=== PATIENT | female | born 2000 | race Caucasian/White ===

== ENCOUNTER 2018-09-23 09:08 | Day surgery (SDC) | payer OTHER ==
[2018-09-09 11:29] VITALS: BMI 27.4
--- NOTE | 2018-09-17 14:50 | HP ---
Admitting History and Physical - Primary Care Physician PCP: Michelle Walter - Admission Chief Complaint: Left breast fibroadenoma History of Present Illness: 18 year old premenapausal nulliparous who presents with palpable left breast mass 05/2017 which an US 03/2018 showed increase in size 4.1x3.9x1.9cm from 3.9x3.6.1.9cm, located in 11:00 region left breast. 08/2018 left breast core biopsy showed fibroadenoma. History Source: Patient Limitations to Obtaining History: No Limitations - Past Medical History ...LMP: 08/21/18 - Past Surgical History Additional Past Surgical History: ACL repair and sinus surgery - Smoking History Smoking history: Never smoked Have you smoked in the past 12 months: No - Alcohol/Substance Use Hx Alcohol Use: No Home Medications - Allergies Allergies/Adverse Reactions: Allergies Allergy/AdvReac Type Severity Reaction Status Date / Time No Known Drug Allergies Allergy Verified 09/09/18 11:24 - Home Medications Home Medications: Ambulatory Orders NK [No Known Home Medication] 09/09/18 Family Disease History - Family Disease History Family Disease History: CA: Grandparent (breast ca 60's// mat GF prostate ca mutiple myeloma), Sister (cervical ca 33) Physical Examination Constitutional: Yes: No Distress Breast(s): Yes: Other (diffusely nodular left breast UIQ 3.0 cm rubery smooth mass//right breast negative) Problem List - Problems (1) Fibroadenoma of left breast Code(s): D24.2 - BENIGN NEOPLASM OF LEFT BREAST Assessment/Plan Left breast biopsy
[2018-09-23] MEDS ORDERED: ONDANSETRON 4 MG/2 ML VIAL IVPUSH PRN ×2 (10:30→11:43)
[2018-09-23] MEDS ORDERED: KETOROLAC TROMETHAMINE 30 MG/1 ML VIAL IVPUSH PRN (10:30)
[2018-09-23] MEDS ORDERED: DEXTROSE 5%-0.45% SALINE 1,000 ML IV SCH (10:30)
[2018-09-23] MEDS ORDERED: MIDAZOLAM HCL 2 MG/2 ML SINGLE DOSE VIAL ONE (10:31)
[2018-09-23] MEDS ORDERED: PROPOFOL 20 ML ONE ×2 (10:31→11:04)
[2018-09-23] MEDS ORDERED: LIDOCAINE HCL/PF 2% SDV 5ML VIAL ONE (10:32)
[2018-09-23] MEDS ORDERED: LIDOCAINE HCL 1% PRESERVATIVE FREE - 30ML VIAL ONE (10:42)
[2018-09-23] MEDS ORDERED: KETOROLAC TROMETHAMINE 30 MG/1 ML VIAL ONE (10:57)
[2018-09-23] MEDS ORDERED: BUPIVACAINE HCL/PF 0.25% (2.5MG/ML) 10 ML VIAL IJ ONE (11:15)
[2018-09-23] MEDS ORDERED: ONDANSETRON 4 MG/2 ML VIAL ONE (11:38)
[2018-09-23] MEDS ORDERED: DEXAMETHASONE SOD PHOSPHATE 4 MG/1 ML VIAL ONE (11:38)
[2018-09-23] MEDS ORDERED: oxyCODONE HCL 5 MG TABLET PO PRN ×2 (11:43)
[2018-09-23] MEDS ORDERED: PROMETHAZINE HCL 25 MG/1 ML VIAL IVPUSH PRN (11:43)
[2018-09-23 12:24] VITALS: TEMP 97.7
[2018-09-23 13:55] VITALS: BP 97/56; PULSE 64
--- NOTE | 2018-09-23 17:24 | OP ---
DATE OF OPERATION: 09/23/2018 PREOPERATIVE DIAGNOSIS: Left breast mass. POSTOPERATIVE DIAGNOSIS: Left breast mass PROCEDURE: Left breast biopsy. ANESTHESIA: General intubated. ATTENDING SURGEON: Bethanie Walter MD PSYCHOLOGIST ENGINEERING: KAMALA Garnett ESTIMATED BLOOD LOSS: Minimal. COMPLICATIONS: None. DESCRIPTION OF PROCEDURE: Patient was made aware of the risks and benefits of the procedure and consented. She was placed in the supine position. After general anesthesia was induced, the patient was intubated, and the operative site was prepped and draped in usual sterile fashion. A curvilinear periareolar incision was then made using electrocautery. Tissues were dissected down to the mass. The mass was bluntly and sharply dissected free and submitted as left breast mass. The wound was copiously irrigated with normal saline. Hemostasis maintained by electrocautery. The wound was then closed with deep 3-0 Vicryl followed by a running subcuticular 4-0 Monocryl. Steri-Strips and a sterile bandage were then applied, as well as injecting the biopsy cavity with bupivacaine. Sterile dressing and compression bra were then applied and the patient having tolerated the procedure well was transferred to the recovery room in excellent condition. BETHANIE WALTER M.D. [id number]
--- NOTE | 2018-09-26 17:06 | PATH ---
Surgical Pathology Report Patient Name: HILARY WHEELER [facility]. Rec. #: [id number] /Age/Gender: 2000 (Age: 18) / F Account: [id number] Location: [facility] Taken: 09/23/2018 Received: 09/23/2018 Reported: 09/26/2018 Physicians: Michelle Walter M.D. Specimen(s) Received LEFT BREAST MASS Clinical History Left breast mass Final Diagnosis BREAST, LEFT, MASS, EXCISION: FIBROADENOMA WITH ASSOCIATED FIBROCYSTIC CHANGES. Electronically Signed Lisseth Elam M.D. Gross Description Received in formalin labeled "left breast mass," is a 4.6 x 3.8 x 2.8 cm casiano stafford, unoriented rubbery mass. There is no needle localization wire present. There is no skin present. The outer surface is inked blue and the specimen is serially sectioned. Sectioning reveals homogeneous casiano, rubbery parenchyma. No areas of hemorrhage or necrosis are identified. Drink Box Mechanic sections are sequentially submitted in 6 cassettes. Time to formalin fixation: 15 minutes Total formalin fixation time: Approximately 31 hours. /09/24/2018 saudi09/24/2018
== END 2018-09-23 12:50 | disposition home or self-care (01) ==
LOC: FASU 09:08
PROVIDERS: ATTEND Surgery Surgical Oncology
PROC: 0HBU0ZX Excision of Left Breast, Open Approach, Diagnostic (ICD-10-PCS; principal; 2018-09-23 10:30)
DX: D24.2 Benign neoplasm of left breast (principal); N63.20 Unspecified lump in the left breast, unspecified quadrant
CPT/HCPCS: 84703; 88307-TC; 94760